=== PATIENT | male | born 1975 | race Caucasian/White ===

== ENCOUNTER 2018-12-05 15:35 | Observation (INO) | payer OTHER ==
[~2018-12-05] VITALS: Ht 175.3 cm; Wt 66.5 kg
--- OUTSIDE RECORDS SUMMARY | 2018-12-05 15:38 | XMS REPORT ---
Author Author [facility] Address Unknown Phone Unavailable Care Team Providers Care Sane Rn Name Role Phone Unavailable Unavailable Payers Payer Name Policy Type Policy Number Effective Date Expiration Date Problems This patient has no known problems. Allergies, Adverse Reactions, Alerts Allergy Name Allergy Type Status Severity Reaction(s) Onset Date Inactive Date Treating Clinician Comments No Known Allergies DA Active U 2014-07-02 00:00:00 Medications This patient has no known medications. Results Test Description Test Time Test Comments Text Results Atomic Results Result Comments COMPREHENSIVE METABOLIC PANEL 2018-06-05 22:11:00 SODIUM (test code=NA) 138 mmol/L 135-148 POTASSIUM (test code=K) 3.8 mmol/L 3.5-5.1 CHLORIDE (test code=CL) 101 mmol/L 101-109 CARBON DIOXIDE (test code=CO2) 26.7 mmol/L 21-32 ANION GAP (test code=GAP) 14 mmol/L 10-20 GLUCOSE (test code=GLU) 112 mg/dL 74-106 BLOOD UREA NITROGEN (test code=BUN) 14 mg/dL 3-21 CREATININE (test code=CREAT) 1.19 mg/dL 0.55-1.3 BUN/CREATININE RATIO (test code=BUN/CREA) 11.8 10-20 TOTAL PROTEIN (test code=PROT) 7.2 g/dL 6.5-8.4 ALBUMIN (test code=ALB) 3.1 g/dL 3.4-4.8 GLOBULIN (test code=GLOB) 4.1 G/DL 1-10 ALBUMIN/GLOBULIN RATIO (test code=A/G) 0.8 RATIO 0.75-1.50 CALCIUM (test code=CA) 9.2 mg/dL 8.4-10.2 BILIRUBIN TOTAL (test code=BILT) 0.40 mg/dL 0.0-1.0 SGOT/AST (test code=AST) 32 U/L 6-32 SGPT/ALT (test code=ALT) 35 U/L 12-78 Note: Change in REFERENCE RANGE due to new reagent method. ALKALINE PHOSPHATASE TOTAL (test code=ALKP) 72 U/L 38-126 COMPREHENSIVE METABOLIC [id number] 21:59:00* Test Item Value Reference Range Comments SODIUM (test code=NA) 138 mmol/L 135-148 POTASSIUM (test code=K) 3.8 mmol/L 3.5-5.1 CHLORIDE (test code=CL) 101 mmol/L 101-109 CARBON DIOXIDE (test code=CO2) 26.7 mmol/L 21-32 ANION GAP (test code=GAP) 14 mmol/L 10-20 GLUCOSE (test code=GLU) 112 mg/dL 74-106 BLOOD UREA NITROGEN (test code=BUN) 14 mg/dL 3-21 CREATININE (test code=CREAT) 1.19 mg/dL 0.55-1.3 BUN/CREATININE RATIO (test code=BUN/CREA) 11.8 10-20 TOTAL PROTEIN (test code=PROT) gram/dL 6.4-8.2 ALBUMIN (test code=ALB) g/dL 3.4-5.0 GLOBULIN (test code=GLOB) g/dL 2.7-4.2 ALBUMIN/GLOBULIN RATIO (test code=A/G) 0.75-1.50 CALCIUM (test code=CA) 9.2 mg/dL 8.4-10.2 BILIRUBIN TOTAL (test code=BILT) mg/dL 0.2-1.2 SGOT/AST (test code=AST) IUnit/L 15-37 SGPT/ALT (test code=ALT) U/L 10-69 ALKALINE PHOSPHATASE TOTAL (test code=ALKP) IUnit/L 45-117 URINALYSIS [id number] 21:49:00* Test Item Value Reference Range Comments UA COLOR (test code=COLU) YELLOW YELLOW UA APPEARANCE (test code=APPU) HAZY CLEAR UA GLUCOSE DIPSTICK (test code=DGLUU) NORMAL mg/dL NEGATIVE UA BILIRUBIN DIPSTICK (test code=BILU) 1 mg/dL (1+) mg/dL NEGATIVE UA KETONE DIPSTICK (test code=KETU) 50 (2+) mg/dL NEGATIVE UA SPECIFIC GRAVITY (test code=SGU) 1.015 1.001-1.035 UA BLOOD DIPSTICK (test code=MYRANDA) 150 (3+) Parth/uL NEGATIVE UA PH DIPSTICK (test code=MERVAT) 5.0 5.0-8.0 UA PROTEIN DIPSTICK (test code=PROU) 100 (2+) mg/dL Neg-15 UA UROBILINIOGEN DIPSTICK (test code=URO) 1 mg/dL 0.0-0.2 UA NITRITE DIPSTICK (test code=JEREMY) POSITIVE NEGATIVE UA LEUKOCYTE ESTERASE DIPSTICK (test code=LEUU) 500/uL (3+) uL NEGATIVE UA WBC (test code=WBCU) 40-50 per HPF 0-5 IN SOME URINARY TRACT INFECTIONS THERE MAY NOT BE ENOUGHWBCs IN THE URINE TO TRIGGER AN AUTOMATIC (REFLEX) URINECULTURE. A SEPERATE ORDER FOR URINE CULTURE IS RECOMMENDEDIF THERE IS STRONG SUPPORT FOR A URINARY TRACT INFECTIONCLINICALLY. UA RBC (test code=RBCU) 3-5 per HPF 0-5 UA EPITHELIAL CELLS (test code=EPIU) Rare (0-1/hpf) per HPF Few UA BACTERIA (test code=BACU) LOADED per HPF NONE UA MUCUS (test code=MUCU) MODERATE per LPF NONE-FEW Urine Source? Clean Catch- CT ABD PELVIS W/O [id number] 21:49:00 Name: SHERRY JAEGER [facility] : 1975 Age/S: 43 / M [address] [facility] Unit #: [id number] Loc: [place] [id number] Phys: Pankaj Sierra MD Acct: [id number] Di s Date: Status: PRE ER PHONE #: Exam Date: 06/05/[id number] FAX #: Reason: R flank pain EXAMS: CPT CODE: [id number] CT ABD PELVIS W/O CONT [id number] REASON FOR EXAM: R flank pain EXAM ORDER DATE: 06/05/2018 9:17 PM Order jim Epperson: Vimal Sierra MD PROCEDURE: - CT ABD PELVIS W/O CONT COMPARISON: FINDINGS: CT images of the abdomen and pe lvis were obtained without IV and without oral contrast at 5mm. Dose reduc tion techniques were applied The liver, spleen, pancreas are grossly within normal limits. The gallbladder is unremarkable by CT. The right kidney is unremarkable. The urinary bladder is contracted. The colon, small bowel, and stomach are within normal limits without evidence of obstruction. No evidence of free air or free fluid. IMPRESSION: Multiple punctate (0.1-0.3 cm) left renal s tones. No evidence of radiopaque stone seen on the right. No evidence of hydronephrosis or radiopaque stone noted along the course of the ureters at 2 149 Reported and signed by: Yo Dempsey M.D. CC: Vimal Martinez MD Technologist:JANINE ROSENTHAL RT(R),CT CTDI: DLP: Trnscb Date/Time: 06/05/2018 (2148) t.TIMR.VTL Orig Print D/T: S: 06/05/2018 (2151) CTD I: DLP: PAGE 1 Signed Report CBC W/AUTO [id number] 21:42:00* Test Item Value Reference Range Comments WHITE BLOOD CELL (test code=WBC) 22.0 K/mm3 4.5-12.5 RED BLOOD CELL (test code=RBC) 4.22 mill/mm3 4.0-5.8 HEMOGLOBIN (test code=HGB) 13.1 gram/dL 13.0-17.5 HEMATOCRIT (test code=HCT) 39.9 % 42.0-52.0 MEAN CELL VOLUME (test code=MCV) 94.5 fL 80-98 MEAN CELL HGB (test code=MCH) 31.0 picogram 27.0-33.0 MEAN CELL HGB CONCETRATION (test code=MCHC) 32.8 gram/dL 33.0-36.0 RED CELL DISTRIBUTION WIDTH (test code=RDW) 13.6 % 11.6-16.2 RED CELL DISTRIBUTION WIDTH SD (test code=RDW-SD) 45.5 fL 39.2-49.5 PLATELET COUNT (test code=PLT) 226 K/mm3 150-450 MEAN PLATELET VOLUME (test code=MPV) 11.3 fL 6.7-11.0 NEUTROPHIL % (test code=NT%) 82.9 % 39.0-69.0 LYMPHOCYTE % (test code=LY%) 6.6 % 25.0-55.0 MONOCYTE % (test code=MO%) 10.4 % 0.0-10.0 EOSINOPHIL % (test code=EO%) 0.0 % 0.0-5.0 BASOPHIL % (test code=BA%) 0.1 % 0.0-1.0 NEUTROPHIL # (test code=NT#) 18.27 K/mm3 1.8-7.7 LYMPHOCYTE # (test code=LY#) 1.45 K/mm3 1.0-5.0 MONOCYTE # (test code=MO#) 2.29 K/mm3 0-0.8 EOSINOPHIL # (test code=EO#) 0.01 K/mm3 0.0-0.5 BASOPHIL # (test code=BA#) 0.02 K/mm3 0.0-0.2 MANUAL DIFF REQUIRED (test code=MDIFF) NO URINALYSIS [id number] 21:38:00* Test Item Value Reference Range Comments UA COLOR (test code=COLU) YELLOW YELLOW UA APPEARANCE (test code=APPU) HAZY CLEAR UA GLUCOSE DIPSTICK (test code=DGLUU) NORMAL mg/dL NEGATIVE UA BILIRUBIN DIPSTICK (test code=BILU) 1 mg/dL (1+) mg/dL NEGATIVE UA KETONE DIPSTICK (test code=KETU) 50 (2+) mg/dL NEGATIVE UA SPECIFIC GRAVITY (test code=SGU) 1.015 1.001-1.035 UA BLOOD DIPSTICK (test code=MYRANDA) 150 (3+) Parth/uL NEGATIVE UA PH DIPSTICK (test code=MERVAT) 5.0 5.0-8.0 UA PROTEIN DIPSTICK (test code=PROU) 100 (2+) mg/dL Neg-15 UA UROBILINIOGEN DIPSTICK (test code=URO) 1 mg/dL 0.0-0.2 UA NITRITE DIPSTICK (test code=JEREMY) POSITIVE NEGATIVE UA LEUKOCYTE ESTERASE DIPSTICK (test code=LEUU) 500/uL (3+) uL NEGATIVE UA WBC (test code=WBCU) per HPF 0-5 Urine Source? Clean Catch
[2018-12-05] MEDS ORDERED: LIDOCAINE VISC 2% SOLN 15 ML UDC PO ONE (16:00)
[2018-12-05] MEDS ORDERED: MAGNESIUM/ALUMINUM/SIMETHICONE 30 ML UDC PO ONE (16:00)
[2018-12-05] MEDS ORDERED: ASPIRIN 81 MG CHEW TAB PO ONE ×2 (16:00)
[2018-12-05 16:22] LABS: BASOPHILS % 0.4 % (0.0-1.0); EOSINOPHILS # (AUTO) 0.1 (0.0-0.4); EOSINOPHILS % 0.7 % (0.0-6.0); HEMATOCRIT 43.7 % (38.2-49.6); HEMOGLOBIN 14.7 g/dL (14.0-18.0); LYMPHOCYTES # (AUTO) 2.2 (1.0-3.2); LYMPHOCYTES % 30.7 % (18.0-39.1); MEAN CORPUSCULAR HGB CONC 33.6 g/dL (31-35); MEAN CORPUSCULAR VOLUME 89.2 fL (81-99); MONOCYTES # (AUTO) 0.5 (0.2-0.8); NEUTROPHILS # (AUTO) 4.3 (2.1-6.9); NEUTROPHILS % 60.9 % (38.7-80.0); PLATELET COUNT 206 x10e3/uL (140-360); RED CELL DISTRIBUTION WIDTH 13.2 % (11.7-14.4)
[2018-12-05 16:24] LABS: BILIRUBIN,URINE SMALL (NEGATIVE); CLARITY,URINE SL CLOUDY (CLEAR); COLOR,URINE ORANGE (YELLOW); KETONES,URINE NEGATIVE (NEGATIVE); LEUKOCYTE ESTERASE ,URINE NEGATIVE (NEGATIVE); NITRITE,URINE NEGATIVE (NEGATIVE); PROTEIN,URINE DIPSTICK TRACE (NEGATIVE); URINE UROBILINOGEN 0.2 mg/dL (0.2 - 1)
[2018-12-05 16:38] LABS: INR 0.9; PROTHROMBIN TIME 12.6 seconds (11.9-14.5)
[2018-12-05 16:40] LABS: BACTERIA,URINE RARE /HPF; EPITHELIAL CELLS,URINE RARE /LPF; OTHER CRYSTALS,URINE PRESENT
[2018-12-05 16:45] LABS: ALANINE AMINOTRANSFERASE 11 IU/L (0-55); ALBUMIN 4.7 g/dL (3.5-5.0); ALBUMIN/GLOBULIN RATIO 1.5 (0.8-2.0); ALKALINE PHOSPHATASE 51 IU/L (40-150); BLOOD UREA NITROGEN 12 mg/dL (7-26); BUN/CREATININE RATIO 11 (6-25); CALCIUM 10.1 mg/dL (8.4-10.2); CARBON DIOXIDE 25 mmol/L (22-29); CHLORIDE 101 mmol/L (98-107); CREATINE KINASE 66 IU/L (30-200); CREATININE, SERUM 1.13 mg/dL (0.72-1.25); EST GLOMERULAR FILTRATION RATE > 60 ML/MIN (60-); GLUCOSE 84 mg/dL (74-118); SODIUM 137 mmol/L (136-145)
--- NOTE | 2018-12-05 17:13 | Diagnostic Imaging Report ---
EXAMINATION: CHEST SINGLE (NOT PORTABLE) INDICATION: Chest pain COMPARISON: None FINDINGS: LINES/TUBES:None LUNGS:The lungs are well-inflated. No focal consolidation or pulmonary edema. PLEURA:No pleural effusion or pneumothorax. MEDIASTINUM:The cardiomediastinal silhouette appears normal in size and shape. BONES/SOFT TISSUES:No acute osseous injury. ABDOMEN:No free air under the diaphragm. IMPRESSION: No focal pneumonia or pulmonary edema. Signed by: Aníbal Bush MD on 12/05/2018 5:09 PM
[2018-12-05] MEDS: BELLADONNA ALK/PHENOBARBITAL 5 ML UDC PO SCH (17:32)
[2018-12-05] MEDS ORDERED: NITROGLYCERIN 0.4 MG SUBL SL ONE (19:00)
[2018-12-05] MEDS ORDERED: NITROGLYCERIN 0.4 MG SUBL SL PRN (19:45)
[2018-12-05] MEDS ORDERED: SODIUM CHLORIDE 0.9% 100 ML 100 ML ONE (22:47)
[2018-12-05] MEDS ORDERED: IOPAMIDOL 370 MG/ML 200 ML INFUS..BTL INJ ONE (22:48)
[2018-12-05] MEDS: FAMOTIDINE 20 MG/2 ML VIAL IV SCH (22:58)
--- NOTE | 2018-12-05 23:10 | NUR ---
PT ARRIVED TO ROOM 109 BY STRETCHER FROM ER. PT IS AAOX3, RR EVEN AND NON-LABORED, ON ROOM AIR. PT REPORTS PAIN TO ANTERIOR CHEST. PT ASSISTED TO AMBULATE TO BED, ORIENTED PT TO HOSPITAL ROOM, CALL LIGHT, PHONE, BED CONTROLS AND LIGHTS. LEFT PT LAYING SEMI FOWLERS IN BED, BED IN LOW LOCKED POSITION, SIDE RAILS UPX2, CALL LIGHT AND PHONE WITHIN REACH.
[2018-12-05 23:31] VITALS: BP 104/68
[2018-12-05] MEDS: ONDANSETRON HCL INJ 2MG/ML 2ML 2 MG/ML VIAL IV PRN (23:40)
[2018-12-05] MEDS: MORPHINE SULFATE 2 MG/ML SYR 1ML IV PRN (23:40)
[2018-12-05 23:45] VITALS: BP 104/68
[2018-12-05 23:51] LABS: CREATINE KINASE 53 IU/L (30-200)
[2018-12-06] VITALS (8 sets, daily range): BP systolic 104–116; BP diastolic 60–74
[2018-12-06] MEDS ORDERED: NORCO 10-325 T1 EACH PO (00:05)
[2018-12-06] MEDS: ONDANSETRON HCL INJ 2MG/ML 2ML 2 MG/ML VIAL IV PRN ×3 (03:40→09:59)
[2018-12-06] MEDS: MORPHINE SULFATE 2 MG/ML SYR 1ML IV PRN ×7 (03:40→23:17)
[2018-12-06 05:55] LABS: BASOPHILS % 0.5 % (0.0-1.0); EOSINOPHILS # (AUTO) 0.1 (0.0-0.4); HEMATOCRIT 43.3 % (38.2-49.6); HEMOGLOBIN 14.6 g/dL (14.0-18.0); LYMPHOCYTES # (AUTO) 2.2 (1.0-3.2); LYMPHOCYTES % 26.5 % (18.0-39.1); MEAN CORPUSCULAR HGB CONC 33.7 g/dL (31-35); MEAN CORPUSCULAR VOLUME 89.1 fL (81-99); MONOCYTES # (AUTO) 0.7 (0.2-0.8); MONOCYTES % 8.9 % (4.4-11.3); NEUTROPHILS # (AUTO) 5.2 (2.1-6.9); NEUTROPHILS % 62.7 % (38.7-80.0); PLATELET COUNT 199 x10e3/uL (140-360); RED BLOOD COUNT 4.86 x10e6/uL (4.3-5.7); RED CELL DISTRIBUTION WIDTH 13.2 % (11.7-14.4)
[2018-12-06 06:10] LABS: ANION GAP 14.3 mmol/L (8-16); BLOOD UREA NITROGEN 12 mg/dL (7-26); BUN/CREATININE RATIO 11 (6-25); CALCIUM 9.7 mg/dL (8.4-10.2); CARBON DIOXIDE 23 mmol/L (22-29); CHLORIDE 103 mmol/L (98-107); CHOL/HDL RATIO 4.1 (3.9-4.7); CHOLESTEROL 167 MD/DL (0-199); CREATININE, SERUM 1.06 mg/dL (0.72-1.25); EST GLOMERULAR FILTRATION RATE > 60 ML/MIN (60-); GLUCOSE 95 mg/dL (74-118); HDL CHOLESTEROL 41 MG/DL (40-60); LDL CHOLESTEROL 104 MG/DL (60-130); POTASSIUM 4.3 mmol/L (3.5-5.1); SODIUM 136 mmol/L (136-145); TRIGLYCERIDES 110 MG/DL (0-149)
[2018-12-06 06:27] LABS: CREATINE KINASE 113 IU/L (30-200)
--- NOTE | 2018-12-06 06:41 | Diagnostic Imaging Report ---
EXAM: CTA Chest without and WITH contrast 12/05/2018 7:37 PM INDICATION: Chest pain. Concern for aortic dissection. COMPARISON: None TECHNIQUE: Chest was scanned utilizing a multidetector helical scanner from the lung apex through the level of the adrenal glands without and with administration of IV contrast. Coronal and sagittal reformations were obtained. Dissection protocol was performed. Postprocessing with volume rendering and 3-D reformatting was performed on a separate workstation. IV CONTRAST: 100 cc Isovue-300 RADIATION DOSE: Total DLP: 564.39 mGy*cm Estimated effective dose: (DLP x 0.014 x size factor) mSv COMPLICATIONS: None FINDINGS: LINES/ TUBES: None. LUNGS AND AIRWAYS: Mild biapical paraseptal emphysematous changes, right greater then left. Mild biapical pleural-parenchymal scarring. 2 mm noncalcified nodule in the right middle lobe on image 41. 2 mm noncalcified nodule in the posterior right lower lobe on image 41. Bibasilar dependent atelectasis. Two, 2 mm noncalcified nodules peripherally in the left lower lobe on image 32. Airways are normal. No filling defects within the pulmonary arterial system to suggest embolism. PLEURA: The pleural spaces are clear. HEART AND MEDIASTINUM: The thyroid gland is normal. No mediastinal, hilar or axillary lymphadenopathy. The heart is normal in size.. There is no pericardial effusion. The thoracic aorta is normal in caliber without evidence of dissection. UPPER ABDOMEN: Limited non-contrast views of the upper abdomen show a punctate nonobstructing carpus in the upper pole of the left kidney on image 57 series 2.. The adrenal glands are normal. BONES: The visualized bony thorax is within normal limits. SOFT TISSUES: Unremarkable. IMPRESSION: No acute aortic abnormality. No evidence of dissection as per clinical query. Signed by: Dr. Anne Marie Pires M.D. on 12/07/2018 2:38 AM
--- NOTE | 2018-12-06 07:30 | NUR ---
Patient alert and responsive, no distress at this time, atypical chest pains and managed with meds as ordered. Call light within reach and will monitor.
[2018-12-06] MEDS: FAMOTIDINE 20 MG/2 ML VIAL IV SCH ×2 (07:57→20:04)
[2018-12-06] MEDS: BELLADONNA ALK/PHENOBARBITAL 5 ML UDC PO SCH ×3 (08:22→20:04)
[2018-12-06] MEDS: ASPIRIN 81 MG ENTERIC COATED PO SCH (08:22)
--- NOTE | 2018-12-06 09:30 | NUR ---
Patient c/o throat pain, [place] given, rounds by attending and consult to Cardiology and notified of consult, will see patient today.
[2018-12-06] MEDS: CEPACOL SORE THROAT LOZENGES PO PRN (11:30)
[2018-12-06] MEDS ORDERED: METHYLPREDNISOLONE SOD SUCC 125 MG/2ML VIAL IV NR (11:30)
--- NOTE | 2018-12-06 11:30 | NUR ---
Rounds by vp communications and orders in place for stress test tomorrow, orders for muscle athralgias and GI prophylaxis. Will obtain consent for stress test tomorrow.
[2018-12-06] MEDS: SUCRALFATE 1 GM TAB PO SCH ×3 (12:19→20:04)
[2018-12-06 13:38] LABS: CREATINE KINASE MB 0.7 ng/mL (0-5.0)
--- NOTE | 2018-12-06 14:45 | Consultation ---
DATE OF CONSULTATION: 12/06/2018 Cardiology Consultation Thank you so much for asking me to see this nice man in consultation. Mr. Abdul is a 43-year-old man, who presents to the emergency room with a complaint of chest discomfort. HISTORY OF PRESENT ILLNESS: The patient reports this has been going on for about 3 days that his chest feels very heavy and actually hard to take a deep breath. He has not tried any medications for this. He has also noted that his throat hurts and that it hurts to swallow. He denies any fever. PAST MEDICAL HISTORY: Significant for a spontaneous pneumothorax 10 or so years earlier, treated with chest tube and resolution without recurrence. He had a repair of anterior cruciate ligament years ago. He reports he has chronic pain in his back and sees a pain medicine doctor, for which he takes [place]. PERSONAL AND SOCIAL HISTORY: The patient has been smoking since his teenage years. He reports he does not drink alcohol. REVIEW OF SYSTEMS: CARDIAC: He knows of no cardiac problem in the past. PULMONARY: He reports he occasionally hear some wheezing. FAMILY HISTORY: Reports both parents are alive and well. He has 2 sisters, who seemed to be well. PHYSICAL EXAMINATION: GENERAL: At this time shows a pleasant, alert, white man. He is alert and responsive. He has widespread tattoos over his chest and arms. HEAD, EYES, EARS, NOSE, AND THROAT: Unremarkable. VITAL SIGNS: He is afebrile, normotensive. NECK: No jugular venous distention. THORAX: Heart sounds S1 and S2 are equal. No murmurs or rubs. LUNGS: Have faint pops and crackles. Chest wall is tender to palpation on both sides. ABDOMEN: Normal bowel sounds. Nontender. EXTREMITIES: No cyanosis, clubbing, or edema. LABORATORY DATA: EKG is unremarkable. Cardiac enzymes are normal. BNP is 15. Cholesterol 167 and triglycerides 110. Basic chemistries are normal. CBC is unremarkable. ASSESSMENT: 1. Costochondritis. 2. Esophagitis. 3. Lung disease with history of smoking. 4. History of spontaneous pneumothorax. PLAN: We will give the patient Solu-Medrol and Carafate. I will check echocardiogram to exclude any pericardial involvement and Carafate, and we will plan stress test in the morning if he remains otherwise stable. Thank you for asking me to see him in consultation. MD PERLITA Kilpatrick/SABA /[id number] cc: Rogelio Dixon MD
--- NOTE | 2018-12-06 16:16 | History and Physical ---
CHIEF COMPLAINT: Severe chest pain, epigastric pain with burning sensation in his throat. HISTORY OF PRESENT ILLNESS: This 43 years old male with no previous history of reflux or chest pain, came in with severe chest pain, pressure-like extensively. The patient was worried, came to the hospital. Here, the patient had multiple GI cocktail, but remained with symptoms. The patient is otherwise stable. CTA of the chest showed negative for any vessel abnormality. Chest x-ray is unremarkable. The patient is stable, placed on observation. PAST MEDICAL HISTORY: Noncontributory. PAST SURGICAL HISTORY: Noncontributory. SOCIAL HISTORY: The patient is a smoker. No alcohol consumption. ALLERGIES: NO KNOWN ALLERGIES. HOME MEDICATIONS: List is reviewed. [place] p.r.n. for pain. PHYSICAL EXAMINATION: VITAL SIGNS: Temperature is 98, blood pressure 110/62, pulse rate 80, and respirations 18. GENERAL: The patient is not in acute distress. HEENT: Normocephalic, atraumatic. Pupils are reactive. Anicteric. NECK: Supple grossly. PULMONARY: Clear. CARDIOVASCULAR: Regular rate and rhythm. ABDOMEN: Soft and unremarkable. EXTREMITIES: No cyanosis or edema. NEUROLOGIC: No gross focal deficit. LABORATORY DATA: WBCs 8, hemoglobin is 14.6, hematocrit of 43.3, and platelets are 199. Chemistry; sodium is 136, potassium 4.3, chloride 103, bicarb 23, BUN 12, creatinine 1.06, and glucose is 50. RADIOGRAPHIC DATA: CTA of the chest negative. Chest x-ray negative. IMPRESSION: 1. Atypical chest pain. 2. Possible reflux. 3. Heavy smoker. PLAN: Consultation with Dr. Cal Nelson for cardiac stress test. Echocardiogram. We will follow up on the patient's status. MD YESI Del Rosario/SABA /[id number]
--- NOTE | 2018-12-06 18:56 | NUR ---
BEDSIDE SHIFT REPORT PERFORMED, RECEIVED PT LAYING SEMI FOWLERS IN BED, AAOX3, RR EVEN AND NON-LABORED, ON ROOM AIR. NO S/SX OF DISTRESS NOTED. LEFT PT LAYING SEMI FOWLERS IN BED, BED IN LOW LOCKED POSITION, SIDE RAILS UPX2, CALL LIGHT AND PHONE WITHIN REACH.
[2018-12-07] VITALS: BP 100/57
[2018-12-07] MEDS: CEPACOL SORE THROAT LOZENGES PO PRN (03:27)
[2018-12-07] MEDS: MORPHINE SULFATE 2 MG/ML SYR 1ML IV PRN ×2 (03:28→07:52)
[2018-12-07 04:00] VITALS: BP 106/62
--- NOTE | 2018-12-07 07:19 | NUR ---
Rcvd patient in report this am. Patient is asleep in bed at this time. no s/s of distress noted
[2018-12-07] MEDS: SUCRALFATE 1 GM TAB PO SCH (07:30)
[2018-12-07] MEDS: FAMOTIDINE 20 MG/2 ML VIAL IV SCH (07:52)
[2018-12-07 08:03] VITALS: BP 104/63
[2018-12-07 08:55] VITALS: BP 104/63
[2018-12-07] MEDS: ASPIRIN 81 MG ENTERIC COATED PO SCH (09:00)
[2018-12-07] MEDS: BELLADONNA ALK/PHENOBARBITAL 5 ML UDC PO SCH (09:00)
--- NOTE | 2018-12-07 09:32 | NUR ---
Patient went to stress test at this time,
[2018-12-07] MEDS ORDERED: OMEPRAZOLE40 MG PO (10:46)
--- NOTE | 2018-12-07 10:57 | NUR ---
Patient discharged from facility to home. Patient assisted out via staff. Removed IV. Pressure dressing applied. Reviewed all discharge paperwork, follow up appts and RX's given.
--- NOTE | 2018-12-07 11:00 | NUR ---
20 g peripheral IV removed. Catheter tip intact.
--- NOTE | 2018-12-10 12:43 | EXERCISE STRESS TEST ---
DATE OF STUDY: 12/07/2018 10:00:00 Stress Test - Treadmill ONLY STUDY FINDINGS: The patient exercised on [place] protocol for a total of 9 minutes and 45 seconds. He reached near 85% of age predicted maximum and requested the treadmill to be stopped evidently for fatigue. There was no EKG change. No chest pain. There was no arrhythmia. Blood pressure response was normal. FINAL IMPRESSIONS: 1. Negative EKG stress test for ischemia. 2. No chest pain. 3. No arrhythmia. 4. Normal blood pressure response. 5. Normal stress test. MD PERLITA Kilpatrick/MODL /[id number] cc: Lio Monroe MD
== END 2018-12-07 10:57 | disposition home or self-care (01) ==
LOC: ER 15:35 → ERHOLD 19:31 → MED/SURG 23:10
PROVIDERS: ADMIT Internal Medicine; ATTEND Internal Medicine
DX: R07.89 Other chest pain (principal); M19.90 Unspecified osteoarthritis, unspecified site; R10.13 Epigastric pain; F17.210 Nicotine dependence, cigarettes, uncomplicated; M94.0 Chondrocostal junction syndrome [Tietze]; K20.9 Esophagitis, unspecified; J98.4 Other disorders of lung; Z87.898 Personal history of other specified conditions; I34.0 Nonrheumatic mitral (valve) insufficiency
CPT/HCPCS: 36415 ×2; 71045; 71275; 80048; 80053; 80061; 81001; 82550 ×2; 82553 ×2; 83880 ×2; 84484 ×2; 85025 ×2; 85379; 85610; 85651; 85730; 86039; 86431; 87086; 93005; 93017; 93306; 96374; 99284; G0378 ×3; J2270 ×3; J2405 ×2; J2930; Q9967

== ENCOUNTER → 2020-04-22 | Day surgery (SDC) | payer OTHER ==
[~2020-04-22] MED LIST: CIPRO500 MG PO; FENTANYL CITRATE/PF 100MCG/2 ML INJ ONE; FLAGYL500 MG; HYOSCYAMINE 0.125 MG TAB ONE; HYOSCYAMINE SULFATE 0.5 MG/ML INJ ONE; KETAMINE HCL INJ 50 MG/ML 10 ML VIAL ONE; LIDOCAINE HCL 2% LOCAL INJ 5 ML SDV VIAL INJ ONE; MIDAZOLAM HCL 2 MG/2 ML VIAL ONE; NORCO 10-325 T1 EACH PO; OMEPRAZOLE40 MG PO; PROMETHAZINE HC25 M1 PO; PROPOFOL IV EMULSION 10 MG/ML 20 ML VIAL ONE
[2020-04-22 17:35] VITALS: BP 122/88
[2020-04-22 18:10] LABS: WBC,FECAL (FECAL LACTOFERRIN) NEGATIVE (NEGATIVE)
[2020-04-23 14:05] LABS: C DIFFICILE TOXIN A&B AMP PROB NEGATIVE (NEGATIVE)
== END | disposition home or self-care (01) ==
LOC: OR 14:35
PROVIDERS: ATTEND Internal Medicine Gastroenterology
DX: K51.50 Left sided colitis without complications (principal); K63.5 Polyp of colon; K62.89 Other specified diseases of anus and rectum; K64.8 Other hemorrhoids; K21.9 Gastro-esophageal reflux disease without esophagitis; D72.820 Lymphocytosis (symptomatic); Z01.810 Encounter for preprocedural cardiovascular examination; Z01.812 Encounter for preprocedural laboratory examination; Z20.828 Contact with and (suspected) exposure to other viral communicable diseases; Z87.891 Personal history of nicotine dependence
CPT/HCPCS: 36415; 45380; 45384; 83630; 83993; 85651; 86140; 86256; 86671; 87045; 87177; 87328; 87493; 93005; J1980; J2001; J2250; J2704; J3010; U0002; 45378